=== PATIENT | female | born 2000 | race Caucasian/White ===

== ENCOUNTER 2024-10-21 23:17 | Observation (INO) | payer MEDICARE, MEDICAID, SELFPAY ==
[2024-10-21 23:27] VITALS: BP 135/85; PULSE 99; RESP 20; TEMP 36.6; O2SAT 99
[2024-10-21 23:45] VITALS: BP 120/87; PULSE 70; O2SAT 97
[2024-10-22] VITALS (34 sets, daily range): BP systolic 117–149; BP diastolic 73–99; PULSE 108–148; RESP 14–25; TEMP 36.6–38.2; O2SAT 95–100
--- NOTE | 2024-10-22 00:15 | W.ED.DENTAL ---
Documented by User: HUBERT Andrade 10/22/24 00:59 HPI - Dental/Oral General: Chief complaint: Wound/Laceration Stated complaint: Headache\Fever\Mouth Surgery Time Seen by Provider: 10/22/24 00:15 Source: patient and other (care staff) Mode of arrival: ambulatory Limitations: other (pt is non-verbal) History of Present Illness: Patient is a 24-year-old mentally disabled female presents to ED today along with two of her care staff members here for concerns of a possible dental infection. Patient is nonverbal. Care staff states she can communicate by handwriting. Staff states she underwent dental procedures in [place] on Friday consisting of several extractions and a few fillings. Staff states she was doing well following the surgery until today when they noticed she had low-grade fevers of 100.9. She had complained of some pain in her mouth as well as a headache. She has not had any vomiting or diarrhea. Care staff states that one of the other staff members recently called in sick due to a viral-like illness and wonders if she also could be coming down with similar symptoms. MD Complaint: tooth pain Onset (ago): day(s) Duration: constant Relieving factors: nothing Exacerbating factors: nothing Context: other (recent dental surgery) Associated symptoms: Reports fever(s) (low grade 100.9); Denies ear or mastoid pain Treatment prior to arrival: none Related Data Home Medications Medication Instructions Recorded Confirmed ibuprofen 200 mg tablet (Advil) 600 mg PO Q6H PRN Pain 10/22/24 10/22/24 Previous Rx's Medication Instructions Recorded acetaminophen 325 mg chewable 650 mg (2 x 325 mg) PO Q6H PRN 10/03/21 tablet pain or fever #100 tabs bismuth subsalicylate 262 mg 2 tab PO QID PRN diarrhea #180 tabs 10/03/21 chewable tablet (Bismuth) diphenhydramine HCl 12.5 mg 25 mg (2 x 12.5 mg) PO TID PRN 10/03/21 chewable tablet (Children's allergies #100 tabs Allergy (diphenhydramine)) medroxyprogesterone 150 mg/mL 150 mg IM .every 3 months #1 mL 10/03/21 intramuscular syringe melatonin 5 mg chewable tablet 5 mg PO DAILY PRN sleep #100 tabs 10/03/21 promethazine-DM 6.25 mg-15 mg/5 mL 5 ml PO Q6H PRN cough #118 mL 10/18/21 oral syrup ciprofloxacin HCl 500 mg tablet 500 mg PO BID 7 days #14 tabs 10/22/24 Allergies Allergy/AdvReac Type Severity Reaction Status Date / Time cephalexin Allergy Intermediate rash Verified 10/17/21 14:28 Penicillins Allergy Intermediate rash, Verified 10/17/21 14:28 diarrhea Review of Systems General: Reports: Other (ROS given by care staff as patient is non-verbal) Const: Reports: fever(s) (low grade 100.9) Eyes: Denies: eye discharge or eye redness ENMT: Reports: mouth pain (recent dental procedure); Denies: ear or mastoid pain, nasal discharge or nasal congestion Card: Denies: chest pain Resp: Denies: dyspnea, productive cough, non-productive cough, wheezing or chest congestion GI: Denies: abdominal pain, vomiting or diarrhea : Denies: dysuria Musc: Denies: neck pain, back pain, extremity pain or joint pain Skin/Breast: Denies: rash Neuro: Reports: headache(s); Denies: dizziness, confusion, behavioral changes or seizure-like activity PFSH ED PFSH: Social History Smoking and tobacco/nicotine status: never used tobacco/nicotine Alcohol intake: never Substance/Drug Use: never Caregiver/support person: Yes Lives independently: No Household members: other Housing: House Marital status: Single Current gender identity: Female Special bora needs: No Physical Exam Const: COMMON NORMALS: no acute distress, average body habitus, healthy appearing, alert and well nourished EXAM LIMITATIONS: other limitations (pt is non-verbal) HENMT: COMMON NORMALS: normocephalic, atraumatic and Normal external nose present HEAD & SCALP: normal to inspection, normocephalic and atraumatic FACE & SINUS: normal facial exam and sinuses nontender NOSE: Normal external nose present MOUTH: Normal oral and palatal mucosa present and lip normal TEETH & GINGIVA: Yes other (sites of dental extractions appear normal) THROAT: posterior oropharynx normal Eye: GENERAL EYE: appearance normal, both eyes and all related structures Neck/C-Spine: COMMON NORMALS: no lymphadenopathy Resp: COMMON NORMALS: normal respiratory effort and clear to auscultation bilaterally AUSCULTATION: clear to auscultation bilaterally Cardio: COMMON NORMALS: regular rhythm RATE: tachycardic RHYTHM: regular rhythm GI: COMMON NORMALS: Soft to palpation and non-tender PALPATION: Yes Soft to palpation Extremity: GENERAL: Yes normal exam except as noted Neuro: SENSORIUM/ORIENTATION: Yes alert Skin: COMMON NORMALS: no rashes or lesions noted GENERAL SKIN EXAM: no rashes or lesions noted Course ED course: Patient was noted to be significantly tachycardic with heart rates in the 130s-140s during examination. Heart rate was charted as 99 in triage. Will obtain labs at this time and start some fluids on her. Care transferred to Dr. Caro due to my shift ending. ES Vital Signs: Vital signs: Vital Signs Temperature 98.2 F 10/22/24 13:30 Pulse Rate 141 H 10/22/24 13:33 Respiratory Rate 18 10/22/24 13:30 Blood Pressure 125/80 10/22/24 13:33 Pulse Oximetry 99 10/22/24 13:33 Oxygen Delivery Me thod Room Air 10/22/24 13:30 MDM - Dental/Oral Lab Data 10/22/24 01:10 10/22/24 01:10 Radiology Impressions Chest X-Ray 10/22/24 00:53 IMPRESSION: No acute findings. Abdomen/Pelvis CT 10/22/24 05:24 IMPRESSION: Possible gallstones with possible gallbladder wall thickening. Consider abdominal ultrasound for further evaluation. Gallbladder Ultrasound 10/22/24 06:02 IMPRESSION: There is stone filled gallbladder with gallbladder wall thickening concerning for cholecystitis in the appropriate clinical setting. Recommend surgical consultation. Laboratory Results WBC 13.90 10^3/uL (3.29-11.43) H 10/22/24 01:10 RBC 4.61 10^6/uL (3.85-5.65) 10/22/24 01:10 Hgb 14.70 g/dL (11.27-16.99) 10/22/24 01:10 Hct 43.1 % (36-47) 10/22/24 01:10 MCV 93.5 fl (85-98) 10/22/24 01:10 MCH 31.9 pg (27-33) 10/22/24 01:10 MCHC 34.1 g/dL (30-55) 10/22/24 01:10 RDW 12.4 % (12.1-15.1) 10/22/24 01:10 Plt Count 250 10^3/cmm (157-399) 10/22/24 01:10 MPV 9.0 fL (7.4-10.4) 10/22/24 01:10 Neut % (Auto) 83.5 % 10/22/24 01:10 Lymph % (Auto) 10.7 % 10/22/24 01:10 [place] % (Auto) 5.3 % 10/22/24 01:10 Eos % (Auto) 0.0 % 10/22/24 01:10 Baso % (Auto) 0.2 % 10/22/24 01:10 Neut # (Auto) 11.60 10^3/uL (1.8-7.7) H 10/22/24 01:10 Lymph # (Auto) 1.5 10^3/uL (0.8-4.8) 10/22/24 01:10 [place] # (Auto) 0.7 10^3/uL (0.2-0.9) 10/22/24 01:10 Eos # (Auto) 0.0 10^3/uL (0.0-0.8) 10/22/24 01:10 Baso # (Auto) 0.0 10^3/uL (0.0-0.1) 10/22/24 01:10 Nucleated RBC % (auto) 0 % 10/22/24 01:10 Nucleated RBCs # 0.0 /100WBC 10/22/24 01:10 D-Dimer 0.64 ug/mLFEU (0-0.59) H 10/22/24 06:00 Sodium 134 mmol/L (136-145) L 10/22/24 01:10 Potassium 3.4 mmol/L (3.5-5.1) L 10/22/24 01:10 Chloride 100 mmol/L (98-107) 10/22/24 01:10 Carbon Dioxide 18 mmol/L (22-29) L 10/22/24 01:10 Anion Gap 19.4 (5-19) H 10/22/24 01:10 BUN 14 mg/dL (6-20) 10/22/24 01:10 Creatinine 0.6 mg/dL (0.5-0.9) 10/22/24 01:10 GFR Calculation 123.9 mL/min (90-130) 10/22/24 01:10 Glucose 104 mg/dL (65-115) 10/22/24 01:10 Calculated Osmolality 279 mOsm/kg (285-295) L 10/22/24 01:10 Lactic Acid 1.0 mmol/L (0.5-2.2) 10/22/24 06:00 Calcium 9.8 mg/dL (8.5-10.5) 10/22/24 01:10 Total Bilirubin 0.5 mg/dL (0.15-1.2) 10/22/24 01:10 AST 26 U/L (0-32) 10/22/24 01:10 ALT 16 U/L (0-33) 10/22/24 01:10 Alkaline Phosphatase 238 U/L (35-105) H 10/22/24 01:10 Total Protein 8.0 g/dL (6.6-8.7) 10/22/24 01:10 Albumin 4.5 g/dL (3.5-5.2) 10/22/24 01:10 Globulin 3.5 g/dL (1.3-4.6) 10/22/24 01:10 HCG, Qual Negative (Negative) 10/22/24 01:10 Urine Color Yellow (Yellow) 10/22/24 01:50 Urine Appearance Clear (CLEAR) 10/22/24 01:50 Urine pH 6.0 (5-7) 10/22/24 01:50 Ur Specific [place] 1.017 (1.005-1.030) 10/22/24 01:50 Urine Protein Negative (Negative) 10/22/24 01:50 Urine Glucose (UA) Negative (Normal) 10/22/24 01:50 Urine Ketones 2+ (Negative) H 10/22/24 01:50 Urine Blood Negative (Negative) 10/22/24 01:50 Urine Nitrate Negative (Negative) 10/22/24 01:50 Urine Bilirubin Negative (Negative) 10/22/24 01:50 Urine Urobilinogen 1.0 mg/dL (Negative) 10/22/24 01:50 Ur Leukocyte Esterase 2+ (Negative) A 10/22/24 01:50 Urine RBC 0-2 /hpf (0-2) 10/22/24 01:50 Urine WBC 6-10 /hpf (0-5) 10/22/24 01:50 Ur Squamous Epith Cells 0-5 /hpf (0-5) 10/22/24 01:50 Amorphous Sediment Not Reportable 10/22/24 01:50 Urine Bacteria Trace /hpf (NONE) 10/22/24 01:50 Hyaline Casts 0-4 /lpf H 10/22/24 01:50 Coronavirus (PCR) Negative (Negative) 10/22/24 01:10 Influenza A (PCR) Negative (Negative) 10/22/24 01:10 Influenza Type B (PCR) Negative (Negative) 10/22/24 01:10 RSV (PCR) Negative (Negative) 10/22/24 01:10 Discharge Plan Discharge Patient Disposition: Admitted As Inpatient Admit Provider: Zi Medina Clinical Impression: Cholelithiasis, Urinary tract infection, Intellectual disability, Sinus tachycardia Condition: Stable Discharge Diet: Usual diet Discharge Activity: Increase activity as tolerated Coding Level of Care Code ED Cashier Payments Received for Chg Fwd Documented by User: Anaya Caro MD 10/22/24 02:31 HPI - Dental/Oral General: Chief complaint: Wound/Laceration Stated complaint: Headache\Fever\Mouth Surgery Time Seen by Provider: 10/22/24 00:15 Related Data Home Medications Medication Instructions Recorded Confirmed ibuprofen 200 mg tablet (Advil) 600 mg PO Q6H PRN Pain 10/22/24 10/22/24 Previous Rx's Medication Instructions Recorded acetaminophen 325 mg chewable 650 mg (2 x 325 mg) PO Q6H PRN 10/03/21 tablet pain or fever #100 tabs bismuth subsalicylate 262 mg 2 tab PO QID PRN diarrhea #180 tabs 10/03/21 chewable tablet (Bismuth) diphenhydramine HCl 12.5 mg 25 mg (2 x 12.5 mg) PO TID PRN 10/03/21 chewable tablet (Children's allergies #100 tabs Allergy (diphenhydramine)) medroxyprogesterone 150 mg/mL 150 mg IM .every 3 months #1 mL 10/03/21 intramuscular syringe melatonin 5 mg chewable tablet 5 mg PO DAILY PRN sleep #100 tabs 10/03/21 promethazine-DM 6.25 mg-15 mg/5 mL 5 ml PO Q6H PRN cough #118 mL 10/18/21 oral syrup ciprofloxacin HCl 500 mg tablet 500 mg PO BID 7 days #14 tabs 10/22/24 Allergies Allergy/AdvReac Type Severity Reaction Status Date / Time cephalexin Allergy Intermediate rash Verified 10/17/21 14:28 Penicillins Allergy Intermediate rash, Verified 10/17/21 14:28 diarrhea PFS ED PFSH: Social History Smoking and tobacco/nicotine status: never used tobacco/nicotine Alcohol intake: never Substance/Drug Use: never Caregiver/support person: Yes Lives independently: No Household members: other Housing: House Marital status: Single Current gender identity: Female Special bora needs: No Course Vital Signs: Vital signs: Vital Signs Temperature 98.2 F 10/22/24 13:30 Pulse Rate 141 H 10/22/24 13:33 Respiratory Rate 18 10/22/24 13:30 Blood Pressure 125/80 10/22/24 13:33 Pulse Oximetry 99 10/22/24 13:33 Oxygen Delivery Me thod Room Air 10/22/24 13:30 MDM - Dental/Oral Medical Decision Making Patient care transitioned me at shift change awaiting labs patient has mild leukocytosis. No renal failure. She has a slight UTI with 6-10 whites and 2+ leukocyte Estrace so we will treat her with Cipro. This should treat any kind of dental infection as well as the urine infection. I discussed this with family. Chest x-ray: No acute process. No infiltrate. No pneumothorax. This was reviewed and interpreted by myself the emergency room physician. I also reviewed the radiology report. Assessment and plan: Urinary tract infection Post dental procedure - Discharged home - Discussed plan with patient. Answered any questions. - Evaluation and treatment of this problem were appropriate in the emergency setting. Lab Data 10/22/24 01:10 12/06/24 01:10 Radiology Impressions Chest X-Ray 10/22/24 00:53 IMPRESSION: No acute findings. Abdomen/Pelvis CT 10/22/24 05:24 IMPRESSION: Possible gallstones with possible gallbladder wall thickening. Consider abdominal ultrasound for further evaluation. Gallbladder Ultrasound 10/22/24 06:02 IMPRESSION: There is stone filled gallbladder with gallbladder wall thickening concerning for cholecystitis in the appropriate clinical setting. Recommend surgical consultation. Laboratory Results WBC 13.90 10^3/uL (3.29-11.43) H 10/22/24 01:10 RBC 4.61 10^6/uL (3.85-5.65) 10/22/24 01:10 Hgb 14.70 g/dL (11.27-16.99) 10/22/24 01:10 Hct 43.1 % (36-47) 10/22/24 01:10 MCV 93.5 fl (85-98) 10/22/24 01:10 MCH 31.9 pg (27-33) 10/22/24 01:10 MCHC 34.1 g/dL (30-55) 10/22/24 01:10 RDW 12.4 % (12.1-15.1) 10/22/24 01:10 Plt Count 250 10^3/cmm (157-399) 10/22/24 01:10 MPV 9.0 fL (7.4-10.4) 10/22/24 01:10 Neut % (Auto) 83.5 % 10/22/24 01:10 Lymph % (Auto) 10.7 % 10/22/24 01:10 [place] % (Auto) 5.3 % 10/22/24 01:10 Eos % (Auto) 0.0 % 10/22/24 01:10 Baso % (Auto) 0.2 % 10/22/24 01:10 Neut # (Auto) 11.60 10^3/uL (1.8-7.7) H 10/22/24 01:10 Lymph # (Auto) 1.5 10^3/uL (0.8-4.8) 10/22/24 01:10 [place] # (Auto) 0.7 10^3/uL (0.2-0.9) 10/22/24 01:10 Eos # (Auto) 0.0 10^3/uL (0.0-0.8) 10/22/24 01:10 Baso # (Auto) 0.0 10^3/uL (0.0-0.1) 10/22/24 01:10 Nucleated RBC % (auto) 0 % 10/22/24 01:10 Nucleated RBCs # 0.0 /100WBC 10/22/24 01:10 D-Dimer 0.64 ug/mLFEU (0-0.59) H 10/22/24 06:00 Sodium 134 mmol/L (136-145) L 10/22/24 01:10 Potassium 3.4 mmol/L (3.5-5.1) L 10/22/24 01:10 Chloride 100 mmol/L (98-107) 10/22/24 01:10 Carbon Dioxide 18 mmol/L (22-29) L 10/22/24 01:10 Anion Gap 19.4 (5-19) H 10/22/24 01:10 BUN 14 mg/dL (6-20) 10/22/24 01:10 Creatinine 0.6 mg/dL (0.5-0.9) 10/22/24 01:10 GFR Calculation 123.9 mL/min (90-130) 10/22/24 01:10 Glucose 104 mg/dL (65-115) 10/22/24 01:10 Calculated Osmolality 279 mOsm/kg (285-295) L 10/22/24 01:10 Lactic Acid 1.0 mmol/L (0.5-2.2) 10/22/24 06:00 Calcium 9.8 mg/dL (8.5-10.5) 10/22/24 01:10 Total Bilirubin 0.5 mg/dL (0.15-1.2) 10/22/24 01:10 AST 26 U/L (0-32) 10/22/24 01:10 ALT 16 U/L (0-33) 10/22/24 01:10 Alkaline Phosphatase 238 U/L (35-105) H 10/22/24 01:10 Total Protein 8.0 g/dL (6.6-8.7) 10/22/24 01:10 Albumin 4.5 g/dL (3.5-5.2) 10/22/24 01:10 Globulin 3.5 g/dL (1.3-4.6) 10/22/24 01:10 HCG, Qual Negative (Negative) 10/22/24 01:10 Urine Color Yellow (Yellow) 10/22/24 01:50 Urine Appearance Clear (CLEAR) 10/22/24 01:50 Urine pH 6.0 (5-7) 10/22/24 01:50 Ur Specific [place] 1.017 (1.005-1.030) 10/22/24 01:50 Urine Protein Negative (Negative) 10/22/24 01:50 Urine Glucose (UA) Negative (Normal) 10/22/24 01:50 Urine Ketones 2+ (Negative) H 10/22/24 01:50 Urine Blood Negative (Negative) 10/22/24 01:50 Urine Nitrate Negative (Negative) 10/22/24 01:50 Urine Bilirubin Negative (Negative) 10/22/24 01:50 Urine Urobilinogen 1.0 mg/dL (Negative) 10/22/24 01:50 Ur Leukocyte Esterase 2+ (Negative) A 10/22/24 01:50 Urine RBC 0-2 /hpf (0-2) 10/22/24 01:50 Urine WBC 6-10 /hpf (0-5) 10/22/24 01:50 Ur Squamous Epith Cells 0-5 /hpf (0-5) 10/22/24 01:50 Amorphous Sediment Not Reportable 10/22/24 01:50 Urine Bacteria Trace /hpf (NONE) 10/22/24 01:50 Hyaline Casts 0-4 /lpf H 10/22/24 01:50 Coronavirus (PCR) Negative (Negative) 10/22/24 01:10 Influenza A (PCR) Negative (Negative) 10/22/24 01:10 Influenza Type B (PCR) Negative (Negative) 10/22/24 01:10 RSV (PCR) Negative (Negative) 10/22/24 01:10 No radiology studies performed this visit Discharge Plan Discharge Patient Disposition: Admitted As Inpatient Admit Provider: Zi Medina Clinical Impression: Cholelithiasis, Urinary tract infection, Intellectual disability, Sinus tachycardia Condition: Stable Discharge Diet: Usual diet Discharge Activity: Increase activity as tolerated Coding Level of Care Code ED Cashier Payments Received for Chg Fwd Documented by User: Vivek June DO 10/22/24 15:21 HPI - Dental/Oral General: Chief complaint: Wound/Laceration Stated complaint: Headache\Fever\Mouth Surgery Time Seen by Provider: 10/22/24 00:15 Related Data Home Medications Medication Instructions Recorded Confirmed ibuprofen 200 mg tablet (Advil) 600 mg PO Q6H PRN Pain 10/22/24 10/22/24 Previous Rx's Medication Instructions Recorded acetaminophen 325 mg chewable 650 mg (2 x 325 mg) PO Q6H PRN 10/03/21 tablet pain or fever #100 tabs bismuth subsalicylate 262 mg 2 tab PO QID PRN diarrhea #180 tabs 10/03/21 chewable tablet (Bismuth) diphenhydramine HCl 12.5 mg 25 mg (2 x 12.5 mg) PO TID PRN 10/03/21 chewable tablet (Children's allergies #100 tabs Allergy (diphenhydramine)) medroxyprogesterone 150 mg/mL 150 mg IM .every 3 months #1 mL 10/03/21 intramuscular syringe melatonin 5 mg chewable tablet 5 mg PO DAILY PRN sleep #100 tabs 10/03/21 promethazine-DM 6.25 mg-15 mg/5 mL 5 ml PO Q6H PRN cough #118 mL 10/18/21 oral syrup ciprofloxacin HCl 500 mg tablet 500 mg PO BID 7 days #14 tabs 10/22/24 Allergies Allergy/AdvReac Type Severity Reaction Status Date / Time cephalexin Allergy Intermediate rash Verified 10/17/21 14:28 Penicillins Allergy Intermediate rash, Verified 10/17/21 14:28 diarrhea PFSH ED PFSH: Social History Smoking and tobacco/nicotine status: never used tobacco/nicotine Alcohol intake: never Substance/Drug Use: never Caregiver/support person: Yes Lives independently: No Household members: other Housing: House Marital status: Single Current gender identity: Female Special bora needs: No Course Vital Signs: Vital signs: Vital Signs Temperature 98.2 F 10/22/24 13:30 Pulse Rate 141 H 10/22/24 13:33 Respiratory Rate 18 10/22/24 13:30 Blood Pressure 125/80 10/22/24 13:33 Pulse Oximetry 99 10/22/24 13:33 Oxygen Delivery Me thod Room Air 10/22/24 13:30 MDM - Dental/Oral Medical Decision Making Patient care transitioned me at shift change awaiting labs patient has mild leukocytosis. No renal failure. She has a slight UTI with 6-10 whites and 2+ leukocyte Estrace so we will treat her with Cipro. This should treat any kind of dental infection as well as the urine infection. I discussed this with family. Chest x-ray: No acute process. No infiltrate. No pneumothorax. This was reviewed and interpreted by myself the emergency room physician. I also reviewed the radiology report. Assessment and plan: Urinary tract infection Post dental procedure - Discharged home - Discussed plan with patient. Answered any questions. - Evaluation and treatment of this problem were appropriate in the emergency setting. Care assumed at change of shift. Patient is still significantly tachycardic we will give her another liter of fluids. White count 13 UA shows cystitis but only mild. CT for renal stone protocol done that shows questionable gallbladder inflammation. Her alk phos is fairly significantly elevated at 238. Gallbladder ultrasound is being done. She has been given ceftriaxone. Patient continues to be tachycardic despite 2 L of fluid. Findings consistent with acute cholecystitis cystitis due to cholelithiasis no signs of common bile duct obstruction alk phos elevated transaminases negative patient remains tachycardic is also developed fever 100.8. Mother drove in from over 2 hours away and then after arriving it took a couple of hours to convince her to allow us to admit the patient ultimately she agreed with admission will consult surgery for evaluation of her gallbladder. Cipro and clindamycin have been initiated. Discussed with hospitalist and with Dr. Fletcher from surgery. Medical Records I reviewed the patient's medical records. Lab Data I reviewed the patient's lab results. 10/22/24 01:10 10/22/24 01:10 Radiology Impressions Chest X-Ray 10/22/24 00:53 IMPRESSION: No acute findings. Abdomen/Pelvis CT 10/22/24 05:24 IMPRESSION: Possible gallstones with possible gallbladder wall thickening. Consider abdominal ultrasound for further evaluation. Gallbladder Ultrasound 10/22/24 06:02 IMPRESSION: There is stone filled gallbladder with gallbladder wall thickening concerning for cholecystitis in the appropriate clinical setting. Recommend surgical consultation. Laboratory Results WBC 13.90 10^3/uL (3.29-11.43) H 10/22/24 01:10 RBC 4.61 10^6/uL (3.85-5.65) 10/22/24 01:10 Hgb 14.70 g/dL (11.27-16.99) 10/22/24 01:10 Hct 43.1 % (36-47) 10/22/24 01:10 MCV 93.5 fl (85-98) 10/22/24 01:10 MCH 31.9 pg (27-33) 10/22/24 01:10 MCHC 34.1 g/dL (30-55) 10/22/24 01:10 RDW 12.4 % (12.1-15.1) 10/22/24 01:10 Plt Count 250 10^3/cmm (157-399) 10/22/24 01:10 MPV 9.0 fL (7.4-10.4) 10/22/24 01:10 Neut % (Auto) 83.5 % 10/22/24 01:10 Lymph % (Auto) 10.7 % 10/22/24 01:10 [place] % (Auto) 5.3 % 10/22/24 01:10 Eos % (Auto) 0.0 % 10/22/24 01:10 Baso % (Auto) 0.2 % 10/22/24 01:10 Neut # (Auto) 11.60 10^3/uL (1.8-7.7) H 10/22/24 01:10 Lymph # (Auto) 1.5 10^3/uL (0.8-4.8) 10/22/24 01:10 [place] # (Auto) 0.7 10^3/uL (0.2-0.9) 10/22/24 01:10 Eos # (Auto) 0.0 10^3/uL (0.0-0.8) 10/22/24 01:10 Baso # (Auto) 0.0 10^3/uL (0.0-0.1) 10/22/24 01:10 Nucleated RBC % (auto) 0 % 10/22/24 01:10 Nucleated RBCs # 0.0 /100WBC 10/22/24 01:10 D-Dimer 0.64 ug/mLFEU (0-0.59) H 10/22/24 06:00 Sodium 134 mmol/L (136-145) L 10/22/24 01:10 Potassium 3.4 mmol/L (3.5-5.1) L 10/22/24 01:10 Chloride 100 mmol/L (98-107) 10/22/24 01:10 Carbon Dioxide 18 mmol/L (22-29) L 10/22/24 01:10 Anion Gap 19.4 (5-19) H 10/22/24 01:10 BUN 14 mg/dL (6-20) 10/22/24 01:10 Creatinine 0.6 mg/dL (0.5-0.9) 10/22/24 01:10 GFR Calculation 123.9 mL/min (90-130) 10/22/24 01:10 Glucose 104 mg/dL (65-115) 10/22/24 01:10 Calculated Osmolality 279 mOsm/kg (285-295) L 10/22/24 01:10 Lactic Acid 1.0 mmol/L (0.5-2.2) 10/22/24 06:00 Calcium 9.8 mg/dL (8.5-10.5) 10/22/24 01:10 Total Bilirubin 0.5 mg/dL (0.15-1.2) 10/22/24 01:10 AST 26 U/L (0-32) 10/22/24 01:10 ALT 16 U/L (0-33) 10/22/24 01:10 Alkaline Phosphatase 238 U/L (35-105) H 10/22/24 01:10 Total Protein 8.0 g/dL (6.6-8.7) 10/22/24 01:10 Albumin 4.5 g/dL (3.5-5.2) 10/22/24 01:10 Globulin 3.5 g/dL (1.3-4.6) 10/22/24 01:10 HCG, Qual Negative (Negative) 10/22/24 01:10 Urine Color Yellow (Yellow) 10/22/24 01:50 Urine Appearance Clear (CLEAR) 10/22/24 01:50 Urine pH 6.0 (5-7) 10/22/24 01:50 Ur Specific [place] 1.017 (1.005-1.030) 10/22/24 01:50 Urine Protein Negative (Negative) 10/22/24 01:50 Urine Glucose (UA) Negative (Normal) 10/22/24 01:50 Urine Ketones 2+ (Negative) H 10/22/24 01:50 Urine Blood Negative (Negative) 10/22/24 01:50 Urine Nitrate Negative (Negative) 10/22/24 01:50 Urine Bilirubin Negative (Negative) 10/22/24 01:50 Urine Urobilinogen 1.0 mg/dL (Negative) 10/22/24 01:50 Ur Leukocyte Esterase 2+ (Negative) A 10/22/24 01:50 Urine RBC 0-2 /hpf (0-2) 10/22/24 01:50 Urine WBC 6-10 /hpf (0-5) 10/22/24 01:50 Ur Squamous Epith Cells 0-5 /hpf (0-5) 10/22/24 01:50 Amorphous Sediment Not Reportable 10/22/24 01:50 Urine Bacteria Trace /hpf (NONE) 10/22/24 01:50 Hyaline Casts 0-4 /lpf H 10/22/24 01:50 Coronavirus (PCR) Negative (Negative) 10/22/24 01:10 Influenza A (PCR) Negative (Negative) 10/22/24 01:10 Influenza Type B (PCR) Negative (Negative) 10/22/24 01:10 RSV (PCR) Negative (Negative) 10/22/24 01:10 Discharge Plan Discharge Patient Disposition: Admitted As Inpatient Admit Provider: Zi Medina Clinical Impression: Cholelithiasis, Urinary tract infection, Intellectual disability, Sinus tachycardia Condition: Stable Discharge Diet: Usual diet Discharge Activity: Increase activity as tolerated Coding Level of Care Code ED Cashier Payments Received for Eloy Lester
--- NOTE | 2024-10-22 00:35 | ECG_ITS ---
[facility]: [facility]22 Pat Name: Scarlett Olvera Department: Room: Gender: Female Rubber Tester: : 2000 Requested By: Trinh Sanchez Order Number: [id number] Radha MD: Monty Marley M.D. Measurements Intervals [place] Rate: 135 P: 65 MD: 125 QRS: 84 QRSD: 83 T: 0 QT: 331 QTc: 497 Interpretive Statements SINUS TACHYCARDIA POSSIBLE RIGHT VENTRICULAR CONDUCTION DELAY [RSR (QR) IN V1/V2] NONSPECIFIC ST & T-WAVE ABNORMALITY ABNORMAL RHYTHM ECG No previous ECG available for comparison Electronically Signed On 10-22-2024 08:15:46 FRINGING MACHINE OPERATOR by Monty Marley M.D. [email or web address]
[2024-10-22] MEDS: clindamycin 150 mg Capsule 300 MG PO (00:53)
--- NOTE | 2024-10-22 00:53 | XRR_ITS ---
PROCEDURE INFORMATION: Exam: XR Chest Exam date and time: 10/22/2024 1:46 AM Age: 24 years old Clinical indication: Fever and other: Tachycardic TECHNIQUE: Imaging protocol: Radiologic exam of the chest. Views: 1 view. COMPARISON: No relevant prior studies available. FINDINGS: Lungs: Unremarkable. No consolidation. Pleural spaces: Unremarkable. No pleural effusion. No pneumothorax. Heart/Mediastinum: Unremarkable. No cardiomegaly. Bones/joints: Unremarkable. XR/XR chest 1V portable [id number] IMPRESSION: No acute findings.
[2024-10-22 01:16] LABS: Basophils % 0.2 %; Hematocrit 43.1 % (36-47); Lymphocytes # 1.5 10^3/uL (0.8-4.8); Lymphocytes % 10.7 %; Mean Corpuscular HGB Conc 34.1 g/dL (30-55); Mean Corpuscular Hemoglobin 31.9 pg (27-33); Mean Corpuscular Volume 93.5 fl (85-98); Monocytes # 0.7 10^3/uL (0.2-0.9); Monocytes % 5.3 %; Neutrophils % 83.5 %; Nucleated Red Blood Cells % 0 %; Platelet Count 250 10^3/cmm (157-399); Red Blood Count 4.61 10^6/uL (3.85-5.65); Red Cell Distribution Width 12.4 % (12.1-15.1)
[2024-10-22] MEDS: sodium chloride 0.9% 1,000 ML 999 ML IV ×2 (01:18→05:13)
[2024-10-22 01:37] LABS: Lactic Sepsis W/Reflex 1.7 mmol/L (0.5-2.2)
[2024-10-22 01:38] LABS: Alanine Aminotransferase 16 U/L (0-33); Albumin Level 4.5 g/dL (3.5-5.2); Alkaline Phosphatase 238 U/L (35-105); Anion Gap 19.4 (5-19); Aspartate Amino Transferase 26 U/L (0-32); Blood Urea Nitrogen 14 mg/dL (6-20); Calcium 9.8 mg/dL (8.5-10.5); Carbon Dioxide 18 mmol/L (22-29); Chloride 100 mmol/L (98-107); Globulin 3.5 g/dL (1.3-4.6); Glomerular Filtration Rate 123.9 mL/min (90-130); Glucose 104 mg/dL (65-115); Osmolality Calculated 279 mOsm/kg (285-295); Potassium 3.4 mmol/L (3.5-5.1); Sodium 134 mmol/L (136-145); Total Bilirubin 0.5 mg/dL (0.15-1.2)
[2024-10-22 01:57] LABS: Covid PCR NEGATIVE (Negative); Influenza A NEGATIVE (Negative); Influenza B NEGATIVE (Negative); Respiratory Syncytial Virus Ce NEGATIVE (Negative)
[2024-10-22 02:07] LABS: Bacteria Urine Trace /hpf; Hyaline Casts Urine 0-4 /lpf; RBC Urine 0-2 /hpf (0-2); Squamous Epithelial Cell Urine 0-5 /hpf (0-5)
[2024-10-22 02:08] LABS: Add Urine Microscopic? YES; Bilirubin Urine Negative (Negative); Blood Urine Negative (Negative); Glucose Urine UA Negative (Normal); Ketones Urine 2+ (Negative); Leukocyte Esterase Urine 2+ (Negative); Nitrate Urine Negative (Negative); Protein Urine Negative (Negative); Specific Gravity, Urine 1.017 (1.005-1.030); Urine Appearance Clear (CLEAR); Urine Color Yellow (Yellow)
[2024-10-22] MEDS: ciprofloxacin 400 MG/200 ML PREMIX 200 MG IV ×2 (02:34→14:58)
[2024-10-22] MEDS: ondansetron 2 mg/ML SDV 2 mL 4 MG IVP (03:59)
--- NOTE | 2024-10-22 05:24 | CTR_ITS ---
PROCEDURE INFORMATION: Exam: CT Abdomen And Pelvis Without Contrast Exam date and time: 10/22/2024 5:37 AM Age: 24 years old Clinical indication: Abdominal pain; Generalized; Additional info: Flank pain TECHNIQUE: Imaging protocol: Computed tomography of the abdomen and pelvis without contrast. Radiation optimization: All CT scans at this facility use at least one of these dose optimization techniques: automated exposure control; mA and/or kV adjustment per patient size (includes targeted exams where dose is matched to clinical indication); or iterative reconstruction. COMPARISON: CR (CHEST, ) 10/22/2024 1:46 AM RADIATION DOSE METRICS: Total DLP (mGy-cm): 340.69 FINDINGS: Limitations: The patient was scanned with their arms at their side creating streak and beam hardening artifact which limits evaluation. Diaphragm: There is a small hiatal hernia. Liver: Normal. No mass. Gallbladder and biliary ducts: Possible gallstones with possible gallbladder wall thickening. Consider abdominal ultrasound for further evaluation. Pancreas: Normal. No ductal dilation. Spleen: Normal. No splenomegaly. Adrenal glands: Normal. No mass. Kidneys and ureters: Normal. No hydronephrosis. Stomach and bowel: Unremarkable. No obstruction. No mucosal thickening. Appendix: No evidence of appendicitis. Intraperitoneal space: See Gallbladder and biliary ducts finding. Vasculature: Unremarkable. No abdominal aortic aneurysm. Lymph nodes: Unremarkable. No enlarged lymph nodes. Urinary bladder: Unremarkable as visualized. Reproductive: Unremarkable as visualized. Bones/joints: Unremarkable. No acute fracture. Soft tissues: Unremarkable. CT/CT kidney stone [id number] IMPRESSION: Possible gallstones with possible gallbladder wall thickening. Consider abdominal ultrasound for further evaluation.
--- NOTE | 2024-10-22 06:02 | USR_ITS ---
PROCEDURE INFORMATION: Exam: US Abdomen, Limited; Right Upper Quadrant Exam date and time: 10/22/2024 6:19 AM Age: 24 years old Clinical indication: Abdominal pain; Additional info: Abnormal gallbladder on CT TECHNIQUE: Imaging protocol: Real time ultrasound of the abdomen with image documentation. Limited exam focused on the right upper quadrant. COMPARISON: CT kidney stone [id number] 10/22/2024 5:37 AM FINDINGS: Liver: Normal. No masses. Gallbladder: There is stone filled gallbladder with gallbladder wall thickening concerning for cholecystitis in the appropriate clinical setting. Biliary ducts: Common bile duct measures 3 mm. Pancreas: Visualized pancreas is unremarkable. Right kidney: Normal. No mass. No hydronephrosis. US/US gall bladder [id number] IMPRESSION: There is stone filled gallbladder with gallbladder wall thickening concerning for cholecystitis in the appropriate clinical setting. Recommend surgical consultation.
[2024-10-22 06:25] LABS: D Dimer 0.64 ug/mLFEU (0-0.59)
--- NOTE | 2024-10-22 06:58 | PC.NURSE ---
Caregiver stated that mom is on her way. She is aprox 2 hours out. Caregiver states pt is not allowed to be admitted or anything invasive done until mother gets here. Caregiver also mentioned pt has been treated for parasites 3 times since Jun. Mom is concerned she has parasites again and this is causing her ailments. made aware.
[2024-10-22 08:55] LABS: HCG, Serum Qual Negative (Negative)
--- NOTE | 2024-10-22 11:56 | P.CONIM_ITS ---
Providers/Reason For Consult 2 Consulting Physician/Specialty*: Zi Medina MD, hospitalist Reason for Consult*: Tachycardia, possible cholecystitis Primary Care Provider: Gabriella Kirkland APN History of Present Illness History of Present Illness Scarlett Olvera is a 24 year old female presenting the hospital with concerns of tooth pain. She was found to be tachycardic. She recently had some tooth extractions. She also had some nausea lately, and had been having intermittent symptoms for quite a while. She never really had any emesis. She has mental impairment, and has some difficulty with communicating and typically signs. She is not verbal. There was subjective fever at home. She has had normal bowel movements. Review of Systems 2 General: Reports: 10 or more systems reviewed and unremarkable except in HPI and below Medications/Allergies Home Medications Medication Instructions Recorded Confirmed Last Taken Type acetaminophen 325 mg chewable 650 mg (2 x 325 mg) PO Q6H PRN 10/03/21 10/22/24 10/21/24 14:45 Rx tablet pain or fever #100 tabs bismuth subsalicylate 262 mg 2 tab PO QID PRN diarrhea #180 tabs 10/03/21 10/22/24 Unknown Rx chewable tablet (Bismuth) diphenhydramine HCl 12.5 mg 25 mg (2 x 12.5 mg) PO TID PRN 10/03/21 10/22/24 10/21/24 20:00 Rx chewable tablet (Children's allergies #100 tabs Allergy (diphenhydramine)) medroxyprogesterone 150 mg/mL 150 mg IM .every 3 months #1 mL 10/03/21 10/22/24 09/30/24 Rx intramuscular syringe melatonin 5 mg chewable tablet 5 mg PO DAILY PRN sleep #100 tabs 10/03/21 10/22/24 Unknown Rx promethazine-DM 6.25 mg-15 mg/5 mL 5 ml PO Q6H PRN cough #118 mL 10/18/21 10/22/24 Unknown Rx oral syrup ciprofloxacin HCl 500 mg tablet 500 mg PO BID 7 days #14 tabs 10/22/24 Unknown Rx ibuprofen 200 mg tablet (Advil) 600 mg PO Q6H PRN Pain 10/22/24 10/22/24 10/21/24 21:00 History Allergies Allergy/AdvReac Type Severity Reaction Status Date / Time cephalexin Allergy Intermediate rash Verified 10/17/21 14:28 Penicillins Allergy Intermediate rash, Verified 10/17/21 14:28 diarrhea PFSH Acute 2 PFSH: Social History Smoking and tobacco/nicotine status: never used tobacco/nicotine Alcohol intake: never Substance/Drug Use: never Caregiver/support person: Yes Lives independently: No Household members: other Housing: House Marital status: Single Current gender identity: Female Special bora needs: No Other PFSH information: Supplemental PFSH Information: Recent dental surgery, with some extractions on Friday, 4 days ago. Vitals/I&O/Wt Last Vital Signs Temp 100.8 F H 10/22/24 11:47 Pulse 146 H 10/22/24 11:47 Resp 14 10/22/24 06:25 BP 122/84 10/22/24 11:47 Pulse Ox 99 10/22/24 11:47 O2 Del Method Room Air 10/22/24 11:47 10/21/24 10/22/24 10/22/24 22:59 06:59 14:59 Intake Total 200 / 200 Balance 200 / 200 Weight last 48 hrs Weight 49.804 kg Physical Exam 2 Narrative: General Exam was markedly tachycardic. Temperature elevation 100.8 Oropharynx with some poor dentition but no obvious abscess to visual inspection Neck supple no lymphadenopathy or thyromegaly Cardiovascular tachycardic, no murmur Lungs clear Abdomen is soft, positive bowel sounds, difficult to tell if there is any discomfort Extremities no cyanosis clubbing or edema Neuro: No focal deficits Skin no rash Data 10/22/24 01:10 10/22/24 01:10 Other Labs: Dimer elevated at 0.64 LFTs normal with exception of alk phos of 238 Lactate not elevated hCG negative Urine leukocyte esterase 2+, 0-2 reds and 6-10 whites on urinalysis. Influenza COVID RSV negative Chest x-ray no infiltrate Gallbladder ultrasound with stone filled gallbladder and wall thickening Abdomen pelvis CT suggesting gallbladder issues, no bile duct dilation. Quite a bit of stool is noted as well has a distended bladder. Micro: Microbiology 10/22/24 06:44 Blood Culture - Preliminary Blood SPECIMEN COLLECTED 10/22/24 06:00 Blood Culture - Preliminary Blood SPECIMEN COLLECTED A&P Assessment and plan (1) Cholelithiasis: Concern of cholecystitis Surgery consult has been ordered She was placed on Cipro, clindamycin, 1 dose IV each She is tachycardic, and febrile. This could be from UTI, even possibly post dental extraction although I do see no obvious abscess. Blood culture was drawn She has received several boluses of IV fluids which were appropriate When I interviewed her care staff, they related her mother would want her transferred to a different hospital. They related to me that her mother is her current guardian. I informed the emergency department physician, they will be talking with family when they arrive his guardian has not yet given permission for admission and may be wanting transfer to another hospital. (2) Urinary tract infection: Cipro IV was given Urine culture, blood culture (3) Intellectual disability: Currently living in an IS[facility] Plan Recent dental extractions. No obvious abscess. She was given Cipro and clindamycin Thank you for this consultation. If family change the mind and wishes for admission here please let me know. I do believe admission is appropriate. Consult Attestations 2 Medical Necessity Statement: Not applicable Diagnoses Cholelithiasis K80.20 Urinary tract infection N39.0 Intellectual disability F79 Time Spent (min) 68
[2024-10-22] MEDS: morphine 4 mg/mL SDV 1 mL 2 MG IVP (12:12)
[2024-10-22] MEDS: potassium chloride oral liq 20 mEq/15 mL UDC 40 MEQ PO (13:08)
[2024-10-22] MEDS: sodium chloride 0.9% 1,000 ML 125 ML IV (14:12)
[2024-10-22] MEDS: clindamycin 600 MG/50 ML PREMIX 100 MG IV ×2 (14:13→21:27)
[2024-10-22] MEDS: pantoprazole 40 mg SDV IVP (14:13)
--- NOTE | 2024-10-22 14:37 | P.CONIM_ITS ---
Providers/Reason For Consult 2 Consulting Physician/Specialty*: Dr. Leandro Fletcher, DO/General Surgery Reason for Consult*: Cholelithiasis Attending Physician: Zi Medina MD Primary Care Provider: Gabriella Kirkland APN History of Present Illness History of Present Illness Scarlett Olvera is a 24 year old female who is mostly nonverbal with an intellectual disability, presented to the hospital because of fever. On Friday she had teeth pulled while under anesthesia. Family present at bedside and are answering most of the questions. HPI and review of systems are limited secondary to patient's intellectual disability. Family reports that she does often get nauseous but has not been having any abdominal pain. I asked the patient if she is having any pain and she pointed to her mouth. CT of the abdomen pelvis shows a gallbladder full of stones with some gallbladder wall thickening. Gallbladder ultrasound confirms this Review of Systems 2 General: Reports: ROS unobtainable due to mental status Medications/Allergies Home Medications Medication Instructions Recorded Confirmed Last Taken Type acetaminophen 325 mg chewable 650 mg (2 x 325 mg) PO Q6H PRN 10/03/21 10/22/24 10/21/24 14:45 Rx tablet pain or fever #100 tabs bismuth subsalicylate 262 mg 2 tab PO QID PRN diarrhea #180 tabs 10/03/21 10/22/24 Unknown Rx chewable tablet (Bismuth) diphenhydramine HCl 12.5 mg 25 mg (2 x 12.5 mg) PO TID PRN 10/03/21 10/22/24 10/21/24 20:00 Rx chewable tablet (Children's allergies #100 tabs Allergy (diphenhydramine)) medroxyprogesterone 150 mg/mL 150 mg IM .every 3 months #1 mL 10/03/21 10/22/24 09/30/24 Rx intramuscular syringe melatonin 5 mg chewable tablet 5 mg PO DAILY PRN sleep #100 tabs 10/03/21 10/22/24 Unknown Rx promethazine-DM 6.25 mg-15 mg/5 mL 5 ml PO Q6H PRN cough #118 mL 10/18/21 10/22/24 Unknown Rx oral syrup ciprofloxacin HCl 500 mg tablet 500 mg PO BID 7 days #14 tabs 10/22/24 Unknown Rx ibuprofen 200 mg tablet (Advil) 600 mg PO Q6H PRN Pain 10/22/24 10/22/24 10/21/24 21:00 History Allergies Allergy/AdvReac Type Severity Reaction Status Date / Time cephalexin Allergy Intermediate rash Verified 10/17/21 14:28 Penicillins Allergy Intermediate rash, Verified 10/17/21 14:28 diarrhea Current Medications Generic Name Dose Route Start Last Admin Trade Name Freq PRN Reason Stop Dose Admin Sodium Chloride 1,000 mls @ 125 mls/hr 10/22/24 13:30 10/22/24 14:12 Sodium Chloride 0.9% IV 125 mls/hr .Q8H KAVON Administration Clindamycin HCl/Dextrose 600 mg in 50 mls @ 100 mls/hr 10/22/24 13:30 10/22/24 14:13 Cleocin IV 100 mls/hr Q8H KAVON Administration Protocol Pantoprazole Sodium 40 mg 10/22/24 13:30 10/22/24 14:13 Pantoprazole 40 Mg Sdv IVP 40 mg Q24H KAVON Administration PFSH Acute 2 PFSH: Social History Smoking and tobacco/nicotine status: never used tobacco/nicotine Alcohol intake: never Substance/Drug Use: never Caregiver/support person: Yes Lives independently: No Household members: other Housing: House Marital status: Single Current gender identity: Female Special bora needs: No Vitals/I&O/Wt Last Vital Signs Temp 98.2 F 10/22/24 13:30 Pulse 141 H 10/22/24 13:33 Resp 18 10/22/24 13:30 BP 125/80 10/22/24 13:33 Pulse Ox 99 10/22/24 13:33 O2 Del Method Room Air 10/22/24 13:30 10/21/24 10/22/24 10/22/24 22:59 06:59 14:59 Intake Total 200 / 200 Balance 200 / 200 Weight last 48 hrs Weight 109 lb 12.8 oz Weight 109 lb 12.8 oz Physical Exam 2 Narrative: General : Patient is well developed , no acute distress, Patient nonverbal from intellectual disability Head : Normal cephalic, a-traumatic. Ears : Pinnae and external canal are normal. Hearing is normal. Eyes : PERRLA, Sclera and injection are normal. No conjunctival discharge. Nose : Mucous membranes are without erythema. Throat : buccal mucosa is normal, gums are without significant recession or hypertrophy. Lungs : Equal chest rise bilaterally, no use of accessory muscles, trachea is midline. Cor : Rate and rhythm are normal. Abdomen : Soft, ND, NT, no g/r/m Extremities : No edema, no cyanosis or clubbing, dorsalis pedis pulses are present bilaterally, non-tender to palpation of calves. Upper extremities are normal bilaterally. Back : non-tender to palpation, no CVA tenderness. Neuro : CN II - XII intact, Upper and lower extremities have equal and full strength Data 10/22/24 01:10 10/22/24 01:10 Micro: Microbiology 10/22/24 06:44 Blood Culture - Preliminary Blood SPECIMEN COLLECTED 10/22/24 06:00 Blood Culture - Preliminary Blood SPECIMEN COLLECTED A&P Assessment and plan (1) Symptomatic cholelithiasis: Plan Patient does have symptomatic cholelithiasis because of her frequent nausea. However she does not have any acute inflammation at this time and her abdomen is nontender. The family does not want to pursue cholecystectomy at this time. Await blood culture results No acute surgical intervention Recommend outpatient cholecystectomy Regular diet Medical management per primary Coding Level of Care Code 52266 Diagnoses Symptomatic cholelithiasis K80.20
[2024-10-22] MEDS: sodium chloride 0.9% 1,000 ML 100 ML IV (21:27)
[2024-10-23] VITALS: BP 100/63; PULSE 102; RESP 15; TEMP 36.6; O2SAT 97
[2024-10-23] MEDS: ciprofloxacin 400 MG/200 ML PREMIX 200 MG IV (03:51)
[2024-10-23 04:00] VITALS: BP 110/69; PULSE 112; RESP 16; TEMP 36.8; O2SAT 98
[2024-10-23 05:07] VITALS: PULSE 106
[2024-10-23] MEDS: ondansetron 2 mg/ML SDV 2 mL 4 MG IVP (05:22)
[2024-10-23] MEDS: clindamycin 600 MG/50 ML PREMIX 100 MG IV (05:25)
[2024-10-23 05:35] LABS: Basophils % 0.2 %; Eosinophils % 0.2 %; Hematocrit 40.9 % (36-47); Lymphocytes # 1.7 10^3/uL (0.8-4.8); Lymphocytes % 13.2 %; Mean Corpuscular HGB Conc 33.5 g/dL (30-55); Mean Corpuscular Hemoglobin 31.8 pg (27-33); Mean Corpuscular Volume 94.9 fl (85-98); Mean Platelet Volume 9.8 fL (7.4-10.4); Monocytes # 1.1 10^3/uL (0.2-0.9); Monocytes % 8.3 %; Neutrophils # 10.14 10^3/uL (1.8-7.7); Neutrophils % 77.6 %; Nucleated Red Blood Cells % 0 %; Platelet Count 238 10^3/cmm (157-399); Red Blood Count 4.31 10^6/uL (3.85-5.65); Red Cell Distribution Width 12.9 % (12.1-15.1); White Blood Count 13.06 10^3/uL (3.29-11.43)
[2024-10-23 05:57] LABS: Alanine Aminotransferase 13 U/L (0-33); Albumin Level 4.1 g/dL (3.5-5.2); Alkaline Phosphatase 204 U/L (35-105); Anion Gap 13.3 (5-19); Aspartate Amino Transferase 12 U/L (0-32); Blood Urea Nitrogen 8 mg/dL (6-20); Calcium 9.7 mg/dL (8.5-10.5); Carbon Dioxide 22 mmol/L (22-29); Chloride 103 mmol/L (98-107); Globulin 3.5 g/dL (1.3-4.6); Glomerular Filtration Rate 123.9 mL/min (90-130); Glucose 130 mg/dL (65-115); Magnesium 2.1 mg/dL (1.7-2.3); Osmolality Calculated 280 mOsm/kg (285-295); Potassium 3.3 mmol/L (3.5-5.1); Sodium 135 mmol/L (136-145); Total Bilirubin 0.4 mg/dL (0.15-1.2); Total Protein 7.6 g/dL (6.6-8.7)
[2024-10-23 08:00] VITALS: BP 120/81; PULSE 112; RESP 18; TEMP 36.4; O2SAT 99
--- NOTE | 2024-10-23 10:32 | P.PN_ITS ---
Subjective 2 Subjective: Patient is up and walking and still only reports oral pain. Denies any abdominal pain. Family wants to leave immediately Vitals/I&O/Wt Last Vital Signs Temp 97.6 F 10/23/24 08:00 Pulse 112 H 10/23/24 08:00 Resp 18 10/23/24 08:00 BP 120/81 10/23/24 08:00 Pulse Ox 99 10/23/24 08:00 O2 Del Method Room Air 10/23/24 08:00 10/22/24 10/23/24 10/23/24 22:59 06:59 14:59 Intake Total 3272.5 / 3322.5 250 / 3572.5 1240 / 1240 Balance 3272.5 / 3322.5 250 / 3572.5 1240 / 1240 Weight last 48 hrs Weight 110 lb 4.8 oz Weight 109 lb 12.8 oz Weight 109 lb 12.8 oz Physical Exam 2 Narrative: General : Patient is well developed , no acute distress, Patient nonverbal from intellectual disability Head : Normal cephalic, a-traumatic. Ears : Pinnae and external canal are normal. Hearing is normal. Eyes : PERRLA, Sclera and injection are normal. No conjunctival discharge. Nose : Mucous membranes are without erythema. Throat : buccal mucosa is normal, gums are without significant recession or hypertrophy. Lungs : Equal chest rise bilaterally, no use of accessory muscles, trachea is midline. Cor : Rate and rhythm are normal. Abdomen : Soft, ND, NT, no g/r/m Extremities : No edema, no cyanosis or clubbing, dorsalis pedis pulses are present bilaterally, non-tender to palpation of calves. Upper extremities are normal bilaterally. Back : non-tender to palpation, no CVA tenderness. Neuro : CN II - XII intact, Upper and lower extremities have equal and full strength Data 10/23/24 05:09 10/23/24 05:09 Micro: Microbiology 10/22/24 06:44 Blood Culture - Preliminary Blood NEGATIVE TO DATE 10/22/24 06:00 Blood Culture - Preliminary Blood NEGATIVE TO DATE A&P Assessment and plan (1) Symptomatic cholelithiasis: Plan Patient does have symptomatic cholelithiasis because of her frequent nausea. However she does not have any acute inflammation at this time and her abdomen is nontender. The family does not want to pursue cholecystectomy at this time. No acute surgical intervention Recommend outpatient cholecystectomy Regular diet Surgically stable for discharge Medical management per primary Attestations 2 Medical Necessity Statement*: per primary Coding Level of Care Code 11493 Diagnoses Symptomatic cholelithiasis K80.20
[2024-10-23 12:38] VITALS: BP 120/80; PULSE 76; RESP 16; TEMP 36.7; O2SAT 95
--- NOTE | 2024-10-23 14:24 | PM.DCS ---
Discharge Providers Date of Admission: 10/22/24 13:10 Date of Discharge: October 23, 2024 Attending Provider at Admission: Zi Medina MD Attending Provider at Discharge: Janina Gutierrez MD Primary Care Provider: Gabriella Kirkland APN Diagnoses at Discharge Discharge Diagnosis (1) Symptomatic cholelithiasis: Status: Acute Reason for Visit Reason for Visit: Headache\Fever\Mouth Surgery Hospital Course Hospital Course Send 24-year-old lady with developmental delay, nonverbal, resident at a half-way who presented to the emergency room on 10/22/2024 with chief complaints of tooth pain. She had also had some nausea recently. Patient had a low-grade fever. She had recently had dental extraction for dental abscess per mother's reported history few days ago. Prior to her dental extraction she had been on Keflex for almost 2 weeks. She underwent abdominal imaging which raised concern for cholecystitis for which general surgery was consulted. Patient was opined to have symptomatic cholelithiasis as a cause of her frequent nausea without any evidence of acute inflammation. Her abdomen was nontender. Her family did not want to pursue cholecystectomy at this time. Differential diagnosis for her fever leukocytosis and clinical presentation more broad. These included but were not limited to dental infection, possible UTI, possible bacteremia given recent history of dental extraction. However blood cultures are pending today. Urine culture so far is showing 50-60,000 mixed urogenital romina. No obvious dental abscess on exam. Patient and her mother were recommended to stay in the hospital until further culture data is available, however patient's guardian (mother) did not wish her to remain in the hospital anymore in spite of counseling regarding the same. She expresses frustration with care so far, though does not point out any specific areas of concern that we could potentially address. Patient is being discharged today on oral Keflex 500 mg twice daily along with metronidazole with recommendations to closely follow-up with her primary care provider within the next 4 to 7 days. Supervisor Molding from the half-way is currently at bedside. Cephalexin is listed as an allergy in her chart, however she has recently received a 2-week course as outpatient and did not have any side effects. Keflex allergy has been removed from the chart. Patient is currently awake alert, walking in the room, does not appear to be in obvious distress. Physical Exam Narrative: General: No acute distress, difficult to assess orientation as nonverbal HEENT: PERRLA, pupils bilaterally equal and reactive, pallors not present Chest: Normal vesicular breath sounds, no added sounds, equal good air entry bilaterally CVS: S1-S2 regular, no murmurs, no tachycardia, no gallops, no rubs Abdomen: Soft, nontender, no organomegaly, bowel sounds present Neuro: No focal deficits, no facial deformity, cannot assess orientation as nonverbal, power 5/5 in all limbs Discharge Data Studies Completed and Pending Completed Studies During Hospitalization Category Date Time Status CT kidney stone 49373 Stat Cat Scan 10/22/24 05:24 Completed XR chest 1V portable [id number] Urgent Exams 10/22/24 00:53 Completed US gall bladder [id number] Stat Ultrasound 10/22/24 06:02 Completed Pending at discharge Category Date Time Status Blood Culture Stat Lab 10/22/24 06:44 Results Urine Culture Stat Lab 10/22/24 01:50 Results Radiology Impressions Chest X-Ray 10/22/24 00:53 IMPRESSION: No acute findings. Abdomen/Pelvis CT 10/22/24 05:24 IMPRESSION: Possible gallstones with possible gallbladder wall thickening. Consider abdominal ultrasound for further evaluation. Gallbladder Ultrasound 10/22/24 06:02 IMPRESSION: There is stone filled gallbladder with gallbladder wall thickening concerning for cholecystitis in the appropriate clinical setting. Recommend surgical consultation. Laboratory Results WBC 13.06 10^3/uL (3.29-11.43) H 10/23/24 05:09 RBC 4.31 10^6/uL (3.85-5.65) 10/23/24 05:09 Hgb 13.70 g/dL (11.27-16.99) 10/23/24 05:09 Hct 40.9 % (36-47) 10/23/24 05:09 MCV 94.9 fl (85-98) 10/23/24 05:09 MCH 31.8 pg (27-33) 10/23/24 05:09 MCHC 33.5 g/dL (30-55) 10/23/24 05:09 RDW 12.9 % (12.1-15.1) 10/23/24 05:09 Plt Count 238 10^3/cmm (157-399) 10/23/24 05:09 MPV 9.8 fL (7.4-10.4) 10/23/24 05:09 Neut % (Auto) 77.6 % 10/23/24 05:09 Lymph % (Auto) 13.2 % 10/23/24 05:09 Titus % (Auto) 8.3 % 10/23/24 05:09 Eos % (Auto) 0.2 % 10/23/24 05:09 Baso % (Auto) 0.2 % 10/23/24 05:09 Neut # (Auto) 10.14 10^3/uL (1.8-7.7) H 10/23/24 05:09 Lymph # (Auto) 1.7 10^3/uL (0.8-4.8) 10/23/24 05:09 Titus # (Auto) 1.1 10^3/uL (0.2-0.9) H 10/23/24 05:09 Eos # (Auto) 0.0 10^3/uL (0.0-0.8) 10/23/24 05:09 Baso # (Auto) 0.0 10^3/uL (0.0-0.1) 10/23/24 05:09 Nucleated RBC % (auto) 0 % 10/23/24 05:09 Nucleated RBCs # 0.0 /100WBC 10/23/24 05:09 D-Dimer 0.64 ug/mLFEU (0-0.59) H 10/22/24 06:00 Sodium 135 mmol/L (136-145) L 10/23/24 05:09 Potassium 3.3 mmol/L (3.5-5.1) L 10/23/24 05:09 Chloride 103 mmol/L (98-107) 10/23/24 05:09 Carbon Dioxide 22 mmol/L (22-29) 10/23/24 05:09 Anion Gap 13.3 (5-19) 10/23/24 05:09 BUN 8 mg/dL (6-20) 10/23/24 05:09 Creatinine 0.6 mg/dL (0.5-0.9) 10/23/24 05:09 GFR Calculation 123.9 mL/min (90-130) 10/23/24 05:09 Glucose 130 mg/dL (65-115) H 10/23/24 05:09 Calculated Osmolality 280 mOsm/kg (285-295) L 10/23/24 05:09 Lactic Acid 1.0 mmol/L (0.5-2.2) 10/22/24 06:00 Calcium 9.7 mg/dL (8.5-10.5) 10/23/24 05:09 Magnesium 2.1 mg/dL (1.7-2.3) 10/23/24 05:09 Total Bilirubin 0.4 mg/dL (0.15-1.2) 10/23/24 05:09 AST 12 U/L (0-32) 10/23/24 05:09 ALT 13 U/L (0-33) 10/23/24 05:09 Alkaline Phosphatase 204 U/L (35-105) H 10/23/24 05:09 Total Protein 7.6 g/dL (6.6-8.7) 10/23/24 05:09 Albumin 4.1 g/dL (3.5-5.2) 10/23/24 05:09 Globulin 3.5 g/dL (1.3-4.6) 10/23/24 05:09 HCG, Qual Negative (Negative) 10/22/24 01:10 Urine Color Yellow (Yellow) 10/22/24 01:50 Urine Appearance Clear (CLEAR) 10/22/24 01:50 Urine pH 6.0 (5-7) 10/22/24 01:50 Ur Specific [place] 1.017 (1.005-1.030) 10/22/24 01:50 Urine Protein Negative (Negative) 10/22/24 01:50 Urine Glucose (UA) Negative (Normal) 10/22/24 01:50 Urine Ketones 2+ (Negative) H 10/22/24 01:50 Urine Blood Negative (Negative) 10/22/24 01:50 Urine Nitrate Negative (Negative) 10/22/24 01:50 Urine Bilirubin Negative (Negative) 10/22/24 01:50 Urine Urobilinogen 1.0 mg/dL (Negative) 10/22/24 01:50 Ur Leukocyte Esterase 2+ (Negative) A 10/22/24 01:50 Urine RBC 0-2 /hpf (0-2) 10/22/24 01:50 Urine WBC 6-10 /hpf (0-5) 10/22/24 01:50 Ur Squamous Epith Cells 0-5 /hpf (0-5) 10/22/24 01:50 Amorphous Sediment Not Reportable 10/22/24 01:50 Urine Bacteria Trace /hpf (NONE) 10/22/24 01:50 Hyaline Casts 0-4 /lpf H 10/22/24 01:50 Coronavirus (PCR) Negative (Negative) 10/22/24 01:10 Influenza A (PCR) Negative (Negative) 10/22/24 01:10 Influenza Type B (PCR) Negative (Negative) 10/22/24 01:10 RSV (PCR) Negative (Negative) 10/22/24 01:10 Vitals Last Vital Signs Temp 98.1 F 10/23/24 12:38 Pulse 76 10/23/24 12:38 Resp 16 10/23/24 12:38 BP 120/80 10/23/24 12:38 Pulse Ox 95 10/23/24 12:38 O2 Del Method Room Air 10/23/24 08:00 Discharge Plan Discharge Patient Disposition: Home Condition: Stable Prescriptions: New cephalexin 500 mg capsule 500 mg PO BID 7 Days Qty: 14 0RF metronidazole 500 mg tablet 500 mg PO BID 7 Days Qty: 14 0RF No Action promethazine-DM 6.25-15 mg/5 mL syrup 5 ml PO Q6H PRN (Reason: cough) Qty: 118 0RF medroxyprogesterone 150 mg/mL syringe 150 mg IM .every 3 months Qty: 1 4RF acetaminophen 325 mg tablet,chewable 650 mg PO Q6H PRN (Reason: pain or fever) Qty: 100 5RF diphenhydramine HCl [Children's Allergy (diphenhyd)] 12.5 mg tablet,chewable 25 mg PO TID PRN (Reason: allergies) Qty: 100 3RF bismuth subsalicylate [Bismuth] 262 mg tablet,chewable 2 tab PO QID PRN (Reason: diarrhea) Qty: 180 3RF Rx Instructions: do not exceed 16 tabs per 24 hrs melatonin 5 mg tablet,chewable 5 mg PO DAILY PRN (Reason: sleep) Qty: 100 3RF ibuprofen [Advil] 200 mg Tablet 600 mg PO Q6H PRN (Reason: Pain) Discharge Orders: Discharge Order (Routine); Ordered 10/23/24 Ordered By: Janina Gutierrez Referrals: Gabriella Kirkland APN [Primary Care Provider] - 4-7 days (follow hospital discharge cultures We have notified your physician's clinic of the need for a follow-up appointment to be scheduled. If you have not heard from them within the next 2 business days, please call them directly. ) Discharge Diet: Usual diet Discharge Activity: Increase activity as tolerated Patient Instructions: Cephalexin (By mouth), Metronidazole (By mouth), Opioid Safety, Pain Management Discharge Attestations Time Spent in Discharge Care*: greater than 30 min Quality Metrics Clinical Quality Measures [ No reported AMI, CVA or VTE this stay] Coding Level of Care Code Acute Code for Chg Fwd Diagnoses Symptomatic cholelithiasis K80.20
== END 2024-10-23 12:40 | disposition home or self-care (01) ==
LOC: ER 10-22 06:38 → MEDSURG 10-22 13:10
PROVIDERS: Physician Assistant; Admitting Provider Internal Medicine; Emergency Provider Family Medicine; PCP Nurse Practitioner Family; Visit Provider Student in an Organized Health Care Education/Training Program
DX: K80.20 Calculus of gallbladder without cholecystitis without obstruction (principal); F79 Unspecified intellectual disabilities; N39.0 Urinary tract infection, site not specified
CPT/HCPCS: 0241U; 36415; 71045; 74176; 76705; 80053; 81001; 83605; 83735; 84703; 85025; 85378; 87040; 87086; 93005; 96365; 96375; 99285; G0378; J0744; J2270; J2405; J2470; J3490; J7030